=== PATIENT | female | born 1960 | race Caucasian/White ===

== ENCOUNTER 2022-06-13 06:55 | Outpatient (CLI) | payer BC, SELFPAY ==
[2022-06-10 14:15] VITALS: BMI 38.9
[2022-06-13] VITALS (14 sets, daily range): BP systolic 100–129; BP diastolic 62–90; PULSE 67–95; RESP 11–28; TEMP 36.8; O2SAT 96–99; BMI 39.3
--- NOTE | 2022-06-13 07:00 | ECG_ITS ---
Measurements Intervals [place] Rate: 94 P: [place]: 0 QRS: -7 QRSD: 90 T: 34 QT: 357 QTc: 449 Interpretive Statements ATRIAL FIBRILLATION NONSPECIFIC ST & T-WAVE ABNORMALITY ABNORMAL ECG Electronically Signed On 06-13-2022 10:29:59 TRAINING EXECUTIVE by Herminio Roy M.D.
[2022-06-13] MEDS: SODIUM CHLORIDE 0.9% IV 1,000 ML 30 ML IV CONT (07:45)
[2022-06-13 08:27] LABS: Anion Gap 4 mmol/L (8-16); Blood Urea Nitrogen 16 mg/dL (7-17); Calcium 8.7 mg/dL (8.4-10.2); Carbon Dioxide 30 mmol/L (22-30); Chloride 102 mmol/L (98-107); Estimated CRCL calculation 105 ml/min; Estimated Glomerular Filt Rate > 60; Glucose 116 mg/dL (65-110); Magnesium 1.6 mg/dL (1.6-2.3); Potassium 3.4 mmol/L (3.4-5.0); Sodium 136 mmol/L (137-145)
--- NOTE | 2022-06-13 08:30 | ECG_ITS ---
Measurements Intervals [place] Rate: 70 P: 58 SD: 224 QRS: -12 QRSD: 98 T: 9 QT: 409 QTc: 442 Interpretive Statements SINUS RHYTHM WITH FIRST DEGREE AV BLOCK WITH OCCASIONAL SUPRAVENTRICULAR PREMATURE COMPLEXES ABNORMAL ECG COMPARED TO ECG 06/13/2022 07:17:05 SINUS RHYTHM NOW PRESENT FIRST DEGREE AV BLOCK NOW PRESENT Electronically Signed On 06-13-2022 10:30:42 ECONOMIC DEVELOPMENT SPECIALIST by Herminio Roy M.D.
--- NOTE | 2022-06-13 08:33 | WPDMODSED ---
Moderate Sedation Note-Pt Data Patient Data Diagnosis: Atrial fibrillation Present Complaint: Atrial fibrillation Procedure to be performed/Plan: Moderate sedation, transesophageal echocardiogram with cardioversion, pulse-wave Doppler color-flow Doppler possible agitated saline study Allergies Allergy/AdvReac Type Severity Reaction Status Date / Time meloxicam Allergy Other Verified 06/13/22 07:23 Home Medications Medication Instructions Recorded Confirmed Type dulaglutide 0.75 mg/0.5 mL 0.75 mg subcut WEEKLY 06/10/22 06/10/22 History subcutaneous pen injector (Trulicity) fexofenadine 60 mg tablet 60 mg PO Q12H 06/10/22 06/13/22 History fluticasone propionate 50 1 spray intranasal DAILY 06/10/22 06/13/22 History mcg/actuation nasal spray,suspension hydrochlorothiazide 12.5 mg capsule 12.5 mg PO DAILY 06/10/22 06/13/22 History levothyroxine 50 mcg tablet 50 mcg PO DAILY 06/10/22 06/13/22 History losartan 100 mg tablet 100 mg PO DAILY 06/10/22 06/13/22 History magnesium oxide 400 mg (241.3 mg 400 mg PO DAILY 06/10/22 06/13/22 History magnesium) tablet medroxyprogesterone 10 mg tablet 10 mg PO DAILY 06/10/22 06/10/22 History metformin 1,000 mg tablet 1,000 mg PO BID 06/10/22 06/13/22 History rivaroxaban 20 mg tablet (Xarelto) 20 mg PO DAILY 06/10/22 06/13/22 History rosuvastatin 10 mg tablet 10 mg PO QHS 06/10/22 06/13/22 History Current Medications: Active Medications Sodium Chloride (Normal Saline Iv) 1,000 mls @ 30 mls/hr IV CONT .Q24H CM Sedation/Anesthesia: No previous sedation/anesthesia problems (including family history). [facility] Social History Social History Smoking status: Never smoker Second hand tobacco smoke exposure: No Alcohol intake: never Substance use: never Substance use type: does not use Living arrangements: alone Gender identity (if verbalized by the patient): Female Spiritual care concerns: No Mod Sed Physical Exam Physical Exam Pre Procedural Exam: Normal: Appearance, Eyes, Ears, Nose, Neck, Throat, Airway, Lungs, Heart Size, Heart Rate, Neuro Exam, Abdomen and Skin and Variation: Heart Rhythm (Irregular irregular) Hours since solid foods: 12 Hours since liquid intake: 12 Mallampati Classification: class II Internal Medicine - PN: Obj Da Vital Signs Vital Signs: Vital Signs - 24 hr 06/13/22 07:00 Temperature 36.8 C Pulse Rate 84 Respiratory Rate 18 Blood Pressure 109/89 Pulse Oximetry 98 Oxygen Delivery Room Air Intake/Output Intake/Output: Intake & Output 06/10/22 06/11/22 06/12/22 06/13/22 23:59 23:59 23:59 23:59 Intake Total 0 Balance 0 Meds/Results Medications: Active Medications Generic Name Dose Route Start Last Admin Trade Name Freq PRN Reason Stop Dose Admin Sodium Chloride 1,000 mls @ 30 mls/hr 06/13/22 07:00 Normal Saline Iv IV CONT .Q24H CM Labs 06/13/22 08:11 Labs: Laboratory Results - last 24 hr 06/13/22 08:11 Sodium 136 L Potassium 3.4 Chloride 102 Carbon Dioxide 30 Anion Gap 4 L BUN 16 Creatinine 0.60 L Estim Creat Clear Calc 105 Estimated GFR > 60 Glucose 116 H Calcium 8.7 Magnesium 1.6 ASA Classification/Sedation ASA Classification/Sedation ASA Class: II Emergent: No Risks: Risks, benefits and alternatives explained and patient/family accepted plan for sedation. Patient re-evaluated immediately prior to sedation.
--- NOTE | 2022-06-13 09:02 | WPDTECDV ---
[facility]AT[facility] with Cardioversion Date of procedure: 06/13/22 Procedure Type: 1. Multiplanar transesophageal echocardiography with color flow and pulse wave Doppler 2. Electrical cardioversion 3. Moderate sedation Diagnosis: Atrial fibrillation Indications: Atrial fibrillation Description of Procedure: After discussing the risks, benefits alternative procedure patient agreeable via verbal and written informed consent. Risks discussed included esophageal rupture perforation, , stroke, need for emergent surgery, bleeding, pain, infection, sore throat, skin irritation or burn, shocking into more problematic heart rhythm. After time-out was taken and after already established and continuous cardiac monitor technician, pulse ox sedation and serial blood pressure assessments, sedation was initiated. Procedure start time 8:39 a.m. Procedure stop time 9:00 a.m. Medications were administered and patient was monitored by Chastity العراقي RN Complications: None Blood loss: None Sedation: Hurricane spray to the Hypopharynx x2 for topical anesthetic as well as a total of 5 mg Versed and 75 mcg fentanyl given in divided dosages Findings: Normal left ventricular size and function with ejection fraction around 60%. Mild left ventricular hypertrophy. Severe left atrial enlargement. Normal right ventricular size and function. Normal right atrial size and function. The mitral valve is opening normally. There is [id number] mitral regurgitation. The aortic valve is trileaflet with moderate aortic stenosis and mild aortic insufficiency. Average planimetry and aortic valve area of 1.1 centimeter squared. It is severely calcified. Leaflets are restricted. There is mild tricuspid regurgitation as well as trivial pulmonic regurgitation. The left atrial appendage is normal without evidence of mass or thrombus. Velocities by pulse wave up to 50 centimeters/second. Aortic root is normal in size measured 3.3 cm. No pericardial effusion. The atrial septum is thin with [id number] shunt noted by color flow. Electrical cardioversion: 150 joules x1 was used which did not convert to sinus rhythm. Then 200 joules of synchronized biphasic energy was used which was successful at restoring sinus rhythm from atrial fibrillation. Conclusion: 1. Normal left ventricular size and function with mild left ventricular hypertrophy 2. Moderate aortic stenosis with mild aortic insufficiency 3. Puno-fq-aeyqdhao mitral regurgitation 4. Normal left atrial appendage without mass or thrombus 5. Mild tricuspid regurgitation 6. Left right atrial shunt consistent with a large PFO versus small residual ASD 7. Severe left atrial enlargement 8. Successful druze of sinus rhythm using 200 joules of synchronized biphasic energy 9. Moderate sedation
[2022-06-13] MEDS: POTASSIUM CHLORIDE 20 MEQ PACKET (FOR LIQUID) 40 MEQ PO (09:32)
== END 2022-06-13 10:40 | disposition home or self-care (01) ==
PROVIDERS: Specialist; Visit Provider Internal Medicine Cardiovascular Disease
PROC: (CPT 93312; principal; 2022-06-13 08:30)
PROC: 5A2204Z Restoration of Cardiac Rhythm, Single (ICD-10-PCS; 2022-06-13 08:30)
DX: I48.91 Unspecified atrial fibrillation (principal); R94.31 Abnormal electrocardiogram [ECG] [EKG]
CPT/HCPCS: 36415; 80048; 83735; 92960; 93312; 93320; 93325; A9270; J2250; J3010; J7030

== ENCOUNTER 2022-08-17 08:32 | Outpatient (CLI) | payer BC, SELFPAY ==
[2022-08-16 13:18] VITALS: BMI 40.0
[2022-08-17] VITALS (10 sets, daily range): BP systolic 86–126; BP diastolic 66–96; PULSE 63–78; RESP 11–20; TEMP 36.4; O2SAT 95–100; BMI 40.4
--- NOTE | 2022-08-17 08:30 | ECG_ITS ---
Measurements Intervals [place] Rate: 75 P: [place]: 0 QRS: -11 QRSD: 88 T: 10 QT: 389 QTc: 435 Interpretive Statements ATRIAL FIBRILLATION ABNORMAL RHYTHM ECG COMPARED TO ECG 06/13/2022 09:06:56 ATRIAL FIBRILLATION NOW PRESENT Electronically Signed On 08-17-2022 14:59:52 POCKETED SPRING MACHINE OPERATOR by Christopher Will M.D.
[2022-08-17 09:20] LABS: Mean Corpuscular HGB Conc 32.6 g/dl (32-36); Mean Corpuscular Hemoglobin 28.2 pg (26-34); Mean Corpuscular Volume 86.5 fl (80-100); Mean Platelet Volume 12.6 fl (7.4-10.4); Platelet Count Result 240 k/mm3 (150-375); Red Blood Count 4.97 M/mm3 (4.2-5.4); Red Cell Distribution Width 15.1 % (11.5-14.5); White Blood Count 7.6 K/mm3 (4.5-10.0)
[2022-08-17 09:30] LABS: Anion Gap 8 mmol/L (8-16); Blood Urea Nitrogen 23 mg/dL (7-17); Calcium 9.3 mg/dL (8.4-10.2); Carbon Dioxide 26 mmol/L (22-30); Chloride 103 mmol/L (98-107); Estimated CRCL calculation 106 ml/min; Estimated Glomerular Filt Rate > 60; Glucose 104 mg/dL (65-110); Magnesium 1.9 mg/dL (1.6-2.3); Potassium 4.2 mmol/L (3.4-5.0); Sodium 137 mmol/L (137-145)
--- NOTE | 2022-08-17 09:37 | WPDMODSED ---
Moderate Sedation Note-Pt Data Patient Data Diagnosis: Atrial fibrillation Present Complaint: Atrial fibrillation Procedure to be performed/Plan: Moderate sedation Electrical cardioversion Allergies Allergy/AdvReac Type Severity Reaction Status Date / Time meloxicam Allergy Intermediate Other Verified 08/17/22 09:10 Home Medications Medication Instructions Recorded Confirmed Type dulaglutide 0.75 mg/0.5 mL 0.75 mg subcut WEEKLY 06/10/22 08/16/22 History subcutaneous pen injector (Trulicity) fluticasone propionate 50 1 spray intranasal DAILY 06/10/22 08/17/22 History mcg/actuation nasal spray,suspension levothyroxine 50 mcg tablet 50 mcg PO DAILY 06/10/22 08/17/22 History losartan 100 mg tablet 100 mg PO DAILY 06/10/22 08/17/22 History magnesium oxide 400 mg (241.3 mg 400 mg PO DAILY 06/10/22 08/17/22 History magnesium) tablet medroxyprogesterone 10 mg tablet 10 mg PO DAILY 06/10/22 08/16/22 History metformin 1,000 mg tablet 1,000 mg PO BID 06/10/22 08/17/22 History rosuvastatin 10 mg tablet 10 mg PO QHS 06/10/22 08/17/22 History rivaroxaban 20 mg tablet (Xarelto) 20 mg PO QPM #30 tabs 06/13/22 08/16/22 Rx fexofenadine 180 mg tablet 180 mg PO DAILY 08/16/22 08/17/22 History metoprolol succinate 25 mg 25 mg PO DAILY 08/16/22 08/17/22 History tablet,extended release 24 hr omeprazole magnesium 20 mg 20 mg PO EVERY OTHER DAY PRN Acid 08/16/22 08/17/22 History tablet,delayed release (Prilosec Reflux OTC) Current Medications: Active Medications Sodium Chloride (Normal Saline Iv) 1,000 mls @ 30 mls/hr IV CONT .Q24H CM Sedation/Anesthesia: No previous sedation/anesthesia problems (including family history). [facility] Social History Social History Smoking status: Never smoker Second hand tobacco smoke exposure: No Alcohol use details: very rarely (less than 1 drink a week) Substance use: never Substance use type: does not use Living arrangements: alone Gender identity (if verbalized by the patient): Female Spiritual care concerns: No Mod Sed Physical Exam Physical Exam Pre Procedural Exam: Normal: Appearance, Eyes, Ears, Nose, Neck, Throat, Airway, Lungs, Heart Size, Heart Rate, Neuro Exam, Abdomen, Extremities and Skin and Variation: Heart Rhythm (Irregular irregular) Hours since solid foods: 12 Hours since liquid intake: 12 Mallampati Classification: class II Internal Medicine - PN: Obj Da Vital Signs Vital Signs: Vital Signs - 24 hr 08/17/22 09:13 Temperature 36.4 C L Pulse Rate 78 Respiratory Rate 20 Blood Pressure 114/69 Pulse Oximetry 99 Oxygen Delivery Room Air Meds/Results Medications: Active Medications Generic Name Dose Route Start Last Admin Trade Name Freq PRN Reason Stop Dose Admin Sodium Chloride 1,000 mls @ 30 mls/hr 08/17/22 08:30 Normal Saline Iv IV CONT .Q24H CM Labs 08/17/22 09:01 08/17/22 09:01 Labs: Laboratory Results - last 24 hr 08/17/22 08/17/22 09:01 09:01 WBC 7.6 RBC 4.97 Hgb 14.0 Hct 43.0 MCV 86.5 MCH 28.2 MCHC 32.6 RDW 15.1 H Plt Count 240 MPV 12.6 H Sodium 137 Potassium 4.2 Chloride 103 Carbon Dioxide 26 Anion Gap 8 BUN 23 H Creatinine 0.60 L Estim Creat Clear Calc 106 Estimated GFR > 60 Glucose 104 Calcium 9.3 Magnesium 1.9 ASA Classification/Sedation ASA Classification/Sedation ASA Class: II Emergent: No Risks: Risks, benefits and alternatives explained and patient/family accepted plan for sedation. Patient re-evaluated immediately prior to sedation.
--- NOTE | 2022-08-17 10:03 | P.PCNCVR_ITS ---
Cardioversion Cardioversion Date of procedure: 08/17/22 Procedure: 1. Electrical cardioversion 2. Moderate sedation Pre-op diagnosis: Atrial fibrillation Post-op diagnosis: Same Indications: Atrial fibrillation Description of procedure: After discussing the risks, benefits alternatives of procedure patient agreeable via verbal and written informed consent. Risks discussed included skin irritation or burn, shocking lead to more problematic heart rhythm, adverse reaction to anesthesia, stroke, . After establishing continuous telemetry monitoring, pulse oxygenation serial blood pressure assessments, time-out was taken and procedure was started. Procedure start time 9:53 a.m. Procedure stop time 10:02 a.m. Complications: None Blood loss: None Sedation: A total of 3 mg of Versed and 50 mcg of fentanyl were given in divided dosages. Medications were administered patient was monitored by Gloria Hardy RN Findings: After adequate sedation, 200 joules of biphasic synchronized energy was used to restore sinus rhythm from atrial fibrillation. Conclusion: 1. Moderate sedation 2. Successful pentecostalism of sinus rhythm using 200 joules of synchronized biphasic energy.
--- NOTE | 2022-08-17 10:15 | ECG_ITS ---
Measurements Intervals [place] Rate: 62 P: -6 TN: 220 QRS: -13 QRSD: 88 T: 3 QT: 415 QTc: 424 Interpretive Statements SINUS RHYTHM WITH FIRST DEGREE AV BLOCK COMPARED TO ECG 08/17/2022 08:50:19 SINUS RHYTHM NOW PRESENT FIRST DEGREE AV BLOCK NOW PRESENT Electronically Signed On 08-17-2022 15:01:45 SUPERVISOR LAMP SHADES by Christopher Will M.D.
== END 2022-08-17 11:16 | disposition home or self-care (01) ==
PROVIDERS: Visit Provider Internal Medicine Cardiovascular Disease
PROC: 5A2204Z Restoration of Cardiac Rhythm, Single (ICD-10-PCS; principal; 2022-08-17 10:00)
DX: I48.91 Unspecified atrial fibrillation (principal)
CPT/HCPCS: 36415; 80048; 83735; 85027; 92960; J2250; J3010; J7030

== ENCOUNTER 2022-12-21 02:27 | Day surgery (SDC) | payer BC, SELFPAY ==
[2022-12-20 12:48] VITALS: BMI 40.0
[2022-12-21] VITALS (8 sets, daily range): BP systolic 103–143; BP diastolic 70–103; PULSE 64–78; RESP 13–21; TEMP 37; O2SAT 94–100; BMI 41.1
--- NOTE | 2022-12-21 08:30 | ECG_ITS ---
Measurements Intervals [place] Rate: 79 P: [place]: 0 QRS: -10 QRSD: 94 T: 9 QT: 372 QTc: 428 Interpretive Statements ATRIAL FIBRILLATION ABNORMAL RHYTHM ECG COMPARED TO ECG 08/17/2022 10:05:53 ATRIAL FIBRILLATION NOW PRESENT Electronically Signed On 12-21-2022 14:39:07 CDT by Herminio Roy M.D.
--- NOTE | 2022-12-21 09:21 | WPDMODSED ---
Moderate Sedation Note-Pt Data Patient Data Diagnosis: atrial fibrillation Present Complaint: atrial fibrillation Procedure to be performed/Plan: outpatient elective cardioversion Moderate sedation Allergies Allergy/AdvReac Type Severity Reaction Status Date / Time meloxicam Allergy Intermediate Other Verified 12/21/22 09:02 Home Medications Medication Instructions Recorded Confirmed Type dulaglutide 0.75 mg/0.5 mL 0.75 mg subcut WEEKLY 06/10/22 12/20/22 History subcutaneous pen injector (Trulicity) fluticasone propionate 50 1 spray intranasal DAILY 06/10/22 12/20/22 History mcg/actuation nasal spray,suspension levothyroxine 50 mcg tablet 50 mcg PO DAILY 06/10/22 12/20/22 History losartan 100 mg tablet 100 mg PO DAILY 06/10/22 12/20/22 History magnesium oxide 400 mg (241.3 mg 400 mg PO DAILY 06/10/22 12/20/22 History magnesium) tablet medroxyprogesterone 10 mg tablet 10 mg PO DAILY 06/10/22 12/20/22 History metformin 1,000 mg tablet 1,000 mg PO BID 06/10/22 12/20/22 History rosuvastatin 10 mg tablet 10 mg PO QHS 06/10/22 12/20/22 History rivaroxaban 20 mg tablet (Xarelto) 20 mg PO QPM #30 tabs 06/13/22 12/20/22 Rx fexofenadine 180 mg tablet 180 mg PO DAILY 08/16/22 12/20/22 History metoprolol succinate 25 mg 25 mg PO DAILY 08/16/22 12/20/22 History tablet,extended release 24 hr omeprazole magnesium 20 mg 20 mg PO EVERY OTHER DAY PRN Acid 08/16/22 12/20/22 History tablet,delayed release (Prilosec Reflux OTC) Current Medications: Active Medications Sodium Chloride (Normal Saline Iv) 1,000 mls @ 30 mls/hr IV CONT .Q24H CM Sedation/Anesthesia: No previous sedation/anesthesia problems (including family history). [facility] Past Medical History Medical History (Updated 12/21/22 @ 09:22 by Herminio Roy MD) Paroxysmal atrial fibrillation Social History Social History Smoking status: Never smoker Second hand tobacco smoke exposure: No Alcohol intake: never Alcohol use details: very rarely (less than 1 drink a week) Substance use: never Substance use type: does not use Living arrangements: alone Gender identity (if verbalized by the patient): Female Spiritual care concerns: No Mod Sed Physical Exam Physical Exam Pre Procedural Exam: Normal: Appearance, Eyes, Ears, Nose, Neck, Throat, Airway, Lungs, Heart Size, Heart Rate, Neuro Exam, Abdomen, Extremities and Skin and Variation: Heart Rhythm ( irregular irregular) Hours since solid foods: 12 Hours since liquid intake: 12 Mallampati Classification: class II Internal Medicine - PN: Obj Da Vital Signs Vital Signs: Vital Signs - 24 hr 12/21/22 09:04 Temperature 37.0 C Pulse Rate 67 Respiratory Rate 19 Blood Pressure 143/88 H Pulse Oximetry 97 Oxygen Delivery Room Air Meds/Results Medications: Active Medications Generic Name Dose Route Start Last Admin Trade Name Freq PRN Reason Stop Dose Admin Sodium Chloride 1,000 mls @ 30 mls/hr 12/21/22 08:30 Normal Saline Iv IV CONT .Q24H CM Labs 12/21/22 08:57 ASA Classification/Sedation ASA Classification/Sedation ASA Class: II Emergent: No Risks: Risks, benefits and alternatives explained and patient/family accepted plan for sedation. Patient re-evaluated immediately prior to sedation.
[2022-12-21 09:36] LABS: Anion Gap 7 mmol/L (8-16); Blood Urea Nitrogen 17 mg/dL (7-17); Calcium 9.5 mg/dL (8.4-10.2); Carbon Dioxide 29 mmol/L (22-30); Chloride 103 mmol/L (98-107); Estimated CRCL calculation 93 ml/min; Estimated Glomerular Filt Rate > 60; Glucose 105 mg/dL (65-110); Magnesium 1.9 mg/dL (1.6-2.3); Sodium 139 mmol/L (137-145)
--- NOTE | 2022-12-21 10:00 | ECG_ITS ---
Measurements Intervals [place] Rate: 64 P: 6 [place]: 216 QRS: -13 QRSD: 94 T: 5 QT: 414 QTc: 429 Interpretive Statements SINUS RHYTHM WITH FIRST DEGREE AV BLOCK ABNORMAL ECG COMPARED TO ECG 08/17/2022 10:05:53 NO SIGNIFICANT CHANGES Electronically Signed On 12-21-2022 12:01:10 CDT by Herminio Roy M.D.
--- NOTE | 2022-12-21 10:01 | WPDCARDVER ---
Cardioversion Cardioversion Date of procedure: 12/21/22 Procedure: 1. Moderate sedation 2. Electrical cardioversion Pre-op diagnosis: Atrial fibrillation Post-op diagnosis: Same Indications: atrial fibrillation Description of procedure: after discussing the risks, benefits alternatives of procedure patient agreeable via verbal and written informed consent. Risks discussed included stroke, skin irritation burning, shocked into more problematic heart rhythm, , adverse reaction to anesthesia. After establishing continuous telemetry monitoring, pulse oxygenation and serial blood pressure assessments, time-out was taken and procedure was started. Procedure start time 9:52 a.m. Procedure stop time 10:00 a.m. Complications: None Blood loss: None Sedation: A total of 4 mg of Versed IV and 75 mcg of fentanyl IV are given in divided dosages for moderate sedation. Patient was monitored and medications were provided by Sheridan White RN Findings: successful jehovah's witness of sinus rhythm from atrial fibrillation using 175 joules of biphasic synchronized energy x1 Conclusion: 1. Successful jehovah's witness of sinus rhythm using 125 joules of synchronized biphasic energy 2. Moderate sedation
== END 2022-12-21 11:05 | disposition home or self-care (01) ==
PROVIDERS: Visit Provider Internal Medicine Cardiovascular Disease
PROC: 5A2204Z Restoration of Cardiac Rhythm, Single (ICD-10-PCS; principal; 2022-12-21 10:00)
DX: I48.0 Paroxysmal atrial fibrillation (principal); I10 Essential (primary) hypertension; E11.9 Type 2 diabetes mellitus without complications; I35.0 Nonrheumatic aortic (valve) stenosis; E78.5 Hyperlipidemia, unspecified; E03.9 Hypothyroidism, unspecified; Z79.899 Other long term (current) drug therapy; Z79.84 Long term (current) use of oral hypoglycemic drugs; Z79.01 Long term (current) use of anticoagulants
CPT/HCPCS: 36415; 80048; 83735; 92960